=== PATIENT | male | born 1995 | race Asian ===

== ENCOUNTER 2019-03-25 00:10 | Emergency (ER) | payer BC ==
[~2019-03-25] VITALS: Ht 167.6 cm; Wt 70.3 kg
--- NOTE | 2019-03-25 00:18 | NUR ---
ED Nurse Note: pt walked in to ED C/O vaginal bleeding since 45 min ago. pt is alert x4. pt stated bleeding occures when having intercorse.
[2019-03-25 00:30] VITALS: BP 116/65
--- NOTE | 2019-03-25 00:42 | Emergency Room Report ---
History of Present Illness General Chief Complaint: Female Urogenital Problems Source: Patient Present Illness HPI 23-year-old male sex change in 2013, presents with vaginal bleeding prior to arrival after intercourse, patient was concerned no lightheadedness no chest pain or shortness of breath, patient want to make sure everything was okay. Bleeding was aggravated by sexual intercourse alleviated by no sexual intercourse, patient presents for evaluation. Allergies: Coded Allergies: No Known Allergies (Unverified , 03/25/19) Patient History Past Medical History: see triage record Reviewed Nursing Documentation: PMH: Agreed; PSxH: Agreed Nursing Documentation-PMH Past Medical History: No Stated History Review of Systems All Other Systems: negative except mentioned in HPI Physical Exam Vital Signs Date Time Temp Pulse Resp B/P (MAP) Pulse Ox O2 Delivery O2 Flow Rate FiO2 03/25/19 00:13 99.0 105 14 112/65 (81) 95 Room Air General Appearance: well appearing, no apparent distress Head: normocephalic, atraumatic ENT: hearing grossly normal, normal voice Neck: full range of motion, supple Respiratory: no respiratory distress, speaking full sentences Genitourinary: other - 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, patient dried blood, clots noted at the vaginal opening, no active bleeding Neurologic: alert, normal gait Psychiatric: mood/affect normal Skin: no rash Medical Decision Making Diagnostic Impression: Primary Impression: Vaginal bleeding ER Course 23-year-old sex change, resents with vaginal bleeding that has resolved after sexual intercourse, patient with no active bleeding at this time Patient given strict pelvic return precautions and pelvic rest Last Vital Signs Date Time Temp Pulse Resp B/P (MAP) Pulse Ox O2 Delivery O2 Flow Rate FiO2 03/25/19 00:30 99.0 99 18 116/65 98 Room Air Disposition: HOME, SELF-CARE Condition: Stable Scripts No Active Prescriptions or Reported Meds Referrals: NOT CHOSEN IPA/,REFERRING (PCP) [facility] Patient Instructions: Menorrhagia, [id number], Pelvic Rest Additional Instructions: The patient was provided with discharge instructions, notified to follow-up with a primary care doctor and or specialist in the next 24-48 hours, and to return to the ED if they have worsening of their symptoms. Please note that this report is being documented using [employer] technology. This can lead to erroneous entry secondary to incorrect interpretation by the dictating instrument. Chris Gaspar MD Mar 25, 2019 00:42
--- NOTE | 2019-03-25 00:44 | NUR ---
ED Nurse Note: PT CLEARED TO BE D/C PER ERMD, PT DISCHARGE AND AFTERCARE INSTRUCTION PROVIDED, PT ADVISED TO FOLLOW UP WITH PCP OR RETURN TO ED IF CHANGES IN CONDITION, VSS, AMBULATORY W/ STAEDY GAIT, LEFT W/ ALL BELONGINGS.
[2019-03-25 00:45] VITALS: BP 116/65
== END 2019-03-25 00:45 | disposition home or self-care (01) ==
LOC: EMR 00:25
DX: R58 Hemorrhage, not elsewhere classified (principal); Z87.890 Personal history of sex reassignment
CPT/HCPCS: 99283